=== PATIENT | male | born 1980 | race Caucasian/White ===

== ENCOUNTER 2025-01-27 14:30 | Outpatient (RCR) | payer MEDICARE, SELFPAY ==
--- NOTE | 2025-01-20 18:49 | CTCCONSULT_ITS ---
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 Tavo Alvarez Referring physician. Axel Freeman MD [facility] Reason for consultation. Patient with metastatic malignancy involving brain referred for radiation oncology consultation. 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 Biopsy right adrenal gland CT directed revealed metastatic high-grade neuroendocrine carcinoma likely origin and lung primary state. PET/CT showed large worsening mediastinal para mediastinal medial right lung mass encasing the right mainstem bronchus consistent with history of lung cancer. MRI of the brain with and without contrast 11/25/2024 revealed a 1.4 cm enhancing nodule frontal lobe with minimal adjacent edema. No secondary mass effect. Also small 5 mm enhancing nodule present at the right upper lobe. Patient has begun chemotherapy carboplatin etoposide Tecentriq and is referred for radiation therapy to the brain. Patient states that he is feeling reasonably well but has some difficulty hearing ringing in the ears and also has experienced stress. 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 Patient with stage IV high-grade neuroendocrine cancer with brain mets noted on Recent MRI. 2. Patient receiving chemo carboplatin etoposide Tecentriq under Dr. Freeman's direction at [facility]. 3. Referred for SRS to brain lesions noted on MRI at [facility]. 4. Will review the imaging studies and order planning MRI for this purpose. 5. Generally 1- 3 fractions SRS results and good local control using modern methods. 6. Thank you very much for allowing me to evaluate and manage this patient Aexl Freeman MD [facility]. Electronically signed by: Frederick Gomez MD, DABR 01/20/2025 6:46 PM
--- NOTE | 2025-01-20 18:50 | CTCTXPLN_ITS ---
[facility] [address] [place], [place] [address] Physician Clinical Treatment Planning Note Date of Service: 01/20/2025 Name: RODRÍGUEZ MATA D.O.B.: 1980 The patient has agreed to proceed with Radiation therapy. Tests and supporting medical records were interpreted to assist in defining the tumor location and extent of disease. Further imaging will be necessary to contour and delineate the volume to which the XRT will be provided. A. Treatment Intent: Palliative B. Modality: 6 MV C. Requested Technique: SRS D. Treatment Site: Brain E. Critical structures to be contoured on plan: F. In order to accomplish this plan, I am ordering/Prescribing the followin. Simulations (s) will be performed to accomplish a reproducible treatment position, to determine optimal treatment portals/beam arrangements, to design beam modifying devices and verify treatment portals on patient prior to the commencement of Radiation Therapy. Brain 2. Devices; for immobilization and beam shaping: Aquaplast 3. CT Guidance for placement of XRT rosas Scan area: 4. Portal images Frequency: 5. Invivo transit dose measurement once per week on all VMAT patients. 6. Special Physics Consult Requested for: 7. Other requests: Palliative G. Dose Objectives: Electronically signed by: Frederick Gomez M.D. 01/20/2025 6:47 PM
--- NOTE | 2025-01-21 11:21 | CTCTXPLNST_ITS ---
Radiation Oncology Treatment Planning Sheet Name: RODRÍGUEZ MATA MR#: [id number] : 1980 Dx: C79.31 Secondary malignant neoplasm of brain Date of Service: 01/20/2025 Account #: ?? Pt Treatment Intent: curative palliative other: Stage: Procedure CPT # Ordered Spec. Procedure 67360 1 Sommer Complex (set-up) 64871 brain 1 Sommer Simple 71451 IMRT Plan 52310 2 MLC Devices VMAT 41280 12 Sommer 3 D 95155 TRTMT dev Complex 22889 TRT[place] [address] [place] [address] 12 Special Dosimetry 07937 Spec Physics 59578 Port Films 62811 SRS Cranial/1FX 58654 SBR 5 FX or Less /ex: 5 = 5 fx 48105 2 sites 3 IMRT Simple 58700 IMRT Complex 48839 IGRT 99434 2 sites 3 Rad del com 6-10 31142 Rad del com 11- 69200 Cont Med Physics 80787 5 Treatment Planning 65460 2 Rad del com 20 mev 10343 Rad del inter 6-10 16686 Rad del inter 11- 43976 Rad del simple 6-10 26314 Rad del simple 11-19 95547 Special Port Plan 99292 TRTMT dev inter 40284 Isodose Complex 04034 Isodose simple 78793 Resp Motion Mgmt Simulation 42651 Placement of Fiducial Markers [address] Electronically Signed By: Frederick Gomez MD, DABR 01/21/2025 11:18 AM
== END 2025-01-31 23:59 | disposition home or self-care (01) ==
LOC: SCTC 14:30
PROVIDERS: PCP Family Medicine; Referring Provider Internal Medicine Hematology & Oncology; Visit Provider Radiology Therapeutic Radiology
DX: C7A.1 Malignant poorly differentiated neuroendocrine tumors (principal); C7B.8 Other secondary neuroendocrine tumors
CPT/HCPCS: 77014; 77290; 77334; 77470

== ENCOUNTER → 2025-02-03 | Outpatient (CLI) | payer MEDICARE, SELFPAY ==
--- NOTE | 2025-02-03 10:30 | XR_ITS ---
Examination: MRI brain with intravenous contrast TECHNIQUE: MR axial T1-weighted images post intravenous administration 20 cc gadolinium INDICATIONS: Brain cancer history numbness in both hands Exam date and time: February 03, 2025 1029 hours FINDINGS: Ventricles are normal in size and configuration No midline shift noted Abnormal enhancement left frontal lobe, irregular enhancing lesion near the frontal convexity, axial image 131, measuring 12 x 9 mm Fourth ventricle midline IMPRESSION: 12 x 9 mm abnormal enhancing left frontal lobe lesion with irregular margins
== END | disposition home or self-care (01) ==
LOC: SMRI 09:55
PROVIDERS: Referring Provider Radiology Therapeutic Radiology; Visit Provider Radiology Therapeutic Radiology
DX: G93.89 Other specified disorders of brain (principal); C79.31 Secondary malignant neoplasm of brain
CPT/HCPCS: 70552; A9579

== ENCOUNTER 2025-02-22 11:31 | Outpatient (RCR) | payer MEDICARE, SELFPAY | END 2025-03-02 23:59 | disposition home or self-care (01) | LOC: SCTC 11:31 | PROVIDERS: Referring Provider Radiology Therapeutic Radiology; Visit Provider Radiology Therapeutic Radiology | DX: Z51.0 Encounter for antineoplastic radiation therapy (principal); C7B.8 Other secondary neuroendocrine tumors; C7A.1 Malignant poorly differentiated neuroendocrine tumors | CPT/HCPCS: 77300; 77301; 77336; 77338; 77373 ==

== ENCOUNTER 2025-04-13 09:15 | Outpatient (RCR) | payer MEDICARE, SELFPAY ==
--- NOTE | 2025-04-13 09:56 | CTCTSUMM_ITS ---
[facility] [address] [place], [place] [address] Treatment Summary Date: 04/13/2025 MR#: [id number] Name: RODRÍGUEZ MATA : 1980 Dx: C79.31 Referring Physician: Axel Freeman MD (A) Diagnosis: [ICD10] C79.31 Secondary malignant neoplasm of brain (B) Aim of Treatment: ??Palliative (C) Concomitant Chemotherapy: Sequential (D) Radiation Dates: Patient had SRS to frontal brain lesion 3 fractions 900 cGy each. Treatment Prescription L frontal brain SRS 6 MV PHOT 2,700 cGy 3 900 cGy Approved (E) All rosas were treated using customized MLC Blocks (F) Finding at Discharge: Seen for first follow-up on 04/13/2025. Patient tolerated the SRS treatment well. States that he is going to get evaluated [place] for further chemotherapy. Brain MRI will be ordered. (G) Discharge Instructions and F/U Appt was given: The patient was also advised to continue follow-up with Dr. Freeman and primary care physician: (H) Cc: Axel Freeman MD [facility]. Electronically signed by: Frederick Gomez MD, CARROLL 04/13/2025 9:54 AM
== END 2025-05-02 23:59 | disposition home or self-care (01) ==
LOC: SCTC 09:15
PROVIDERS: PCP Family Medicine; Referring Provider Radiology Therapeutic Radiology; Visit Provider Radiology Therapeutic Radiology
DX: C79.31 Secondary malignant neoplasm of brain (principal)
CPT/HCPCS: 99212; G0463